=== PATIENT | female | born 1975 | race African-American/Black ===

== ENCOUNTER 2018-04-20 19:06 | Emergency (ER) | payer BC ==
[2018-04-20 19:20] VITALS: BP 127/82
--- NOTE | 2018-04-20 19:36 | UC ---
Complaint Female HPI - HPI Summary HPI Summary: 42 y/o female presents to the urgent care requesting STD's screening since her boyfriend is having penile discharge and urinary symptoms and told her he has been exposed to STD's from previous partner. Pt is currently taking Macrobid PO for a UTI Dx 3 days ago. Pt denies Hx of STD's, urinary symptoms, vaginal discharge, fever, SOB, chest pain,abdominal pain, N/V/D. Pt wants to be and is not taking any OCP or protection. LMP:03/24/2018. Pt request a test too. - History Of Current Complaint Chief Complaint: UCSTDScreening Stated Complaint: PERSONAL Time Seen by Provider: 04/20/18 19:18 Hx Obtained From: Patient Hx Last Menstrual Period: 03/24/2018 ?: No Onset/Duration: Other - Pt's partner w/ a penile discharge Pt request STD's screening. Pt w/o any symptoms Severity Initially: Mild Severity Currently: None Pain Intensity: 0 Pain Scale Used: 0-10 Numeric Character: Not Applicable Aggravating Factor(s): Nothing Alleviating Factor(s): Nothing Associated Signs And Symptoms: Positive: Negative. Negative: Fever, Back Pain, Vaginal Discharge, Genital Swelling, Genital Blisters - Risk Factors Ectopic Risk Factor: Negative Ovarian Torsion Risk Factor: Negative - Allergies/Home Medications Allergies/Adverse Reactions: Allergies Allergy/AdvReac Type Severity Reaction Status Date / Time No Known Allergies Allergy Verified 04/20/18 19:12 Home Medications: Home Medications Nitrofurantoin Monohyd/M-Cryst [Macrobid 100 mg Capsule] 100 mg PO BID 04/20/18 [History Confirmed 04/20/18] PMH/Surg Hx/FS Hx/Imm Hx Previously Healthy: Yes - Pt denies PMHX - Surgical History Surgical History: Yes Surgery Procedure, Year, and Place: Breast implants 2006 - Family History Known Family History: Positive: Hypertension - Social History Occupation: Employed Full-time Lives: With Family Alcohol Use: Occasionally Substance Use Type: None Smoking Status (MU): Never Smoked Tobacco Review of Systems Constitutional: Negative Skin: Negative Eyes: Negative ENT: Negative Respiratory: Negative Cardiovascular: Negative Gastrointestinal: Negative Genitourinary: Negative Motor: Negative Neurovascular: Negative Musculoskeletal: Negative Neurological: Negative Psychological: Negative Is Patient Immunocompromised?: No All Other Systems Reviewed And Are Negative: Yes Physical Exam - Summary Physical Exam Summary: Vital signs: reviewed General: well developed, well nourished female sitting in the examining table w /o any acute distress. Head: Normocephalic, no lesions. Eyes: PERRLA, EOM's full, conjunctiva clear, fundi grossly normal. Ears: EAC's clear, TM's normal. Nose: Mucosa normal, no obstruction. Throat: Clear, no exudates, no lesions. Neck: Supple, no masses, no thyromegaly, no bruits. Chest: Lungs clear, no rales, no rhonchi, no wheezes. Heart: RR, no murmurs, no rubs, no gallops. Abdomen: Soft, no tenderness, no masses, BS normal. : Normal, no lesions, no discharge, no hernias noted. 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 External genitalia within normal limits. There is no lesions there is no masses noted. Speculum exam: The vaginal romero are within normal limits w/ white vaginal discharge, no the lesions or rashes. The cervix is closed with no lesions or masses. There is no CMT's, and no adnexal masses. Sample sent to Lab for G/C and Affirm panel trichomonas Rectal: No lesions, no hemorrhoids, Back: Normal curvature, no tenderness. Extremities: FROM, no deformities, no edema, no erythema. Neuro: Physiological, no localizing findings. Skin: Normal, no rashes, no lesions noted. Triage Information Reviewed: Yes Vital Signs: Initial Vital Signs Temp 99.8 F 04/20/18 19:13 Pulse 78 04/20/18 19:13 Resp 18 04/20/18 19:13 BP 127/82 04/20/18 19:13 Pulse Ox 98 04/20/18 19:13 Complaint Female Dx - Course Course Of Treatment: 42 y/o female presents to the urgent care requesting STD's screening since her boyfriend is having penile discharge and urinary symptoms and told her he has been exposed to STD's from previous partner. Pt is currently taking Macrobid PO for a UTI Dx 3 days ago. Pt denies Hx of STD's, urinary symptoms, vaginal discharge, fever, SOB, chest pain,abdominal pain, N/V/ D. Pt wants to be and is not taking any OCP or protection. LMP:2017. Pt request a test too.Hx obtained. PE: WNL. Pelvic exam: WNL. Pelvic samples sent to lab to r/o GC/Chla, trichimonas, BV and mana. Blood work ordered for HIV, syphillis, herpes, hep B and Hep C. test: negative. Pt will be notified of the results. Pt advised to continue taking Macrobid for her UTI. D/C instructions explained. Pt understood and agreed w/ plan of care. - Differential Dx/Diagnosis Differential Diagnosis/HQI/PQRI: Cervicitis, Pelvic Inflammatory Disease, , Renal Colic, Sexually Transmitted Disease, Ureteral Stone, Urinary Tract Infection Provider Diagnoses: 1- STI screening. 2- HIV screening Discharge - Sign-Out/Discharge Documenting (check all that apply): Patient Departure - D/C home All imaging exams completed and their final reports reviewed: No Studies - Discharge Plan Condition: Stable Disposition: HOME Patient Education Materials: Sexually Transmitted Diseases (ED), HIV Transmission (ED) Referrals: Darion Cooley MD [Primary Care Provider] - 2 Days Additional Instructions: 1-continue taking Macrobid PO for your UTI. 2- Specimen were sent to lab, if anything abnormal you will receive a call from us for further treatment. 3- blood work was also sent to lab to r/o other STD's, you will notified of results. - Billing Disposition and Condition Condition: STABLE Disposition: Home
[2018-04-22 14:38] LABS: Herpes Simplex Virus II IgG AB Positive (Negative)
--- NOTE | 2018-04-22 15:44 | UC ---
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 2- Specimen were sent to lab, if anything abnormal you will receive a call from us for further treatment. 3- blood work was also sent to lab to r/o other STD's, you will notified of results. - Billing Disposition and Condition Condition: STABLE Disposition: Home
--- NOTE | 2018-04-24 13:24 | UC ---
- Progress Note Progress Note: 04/24/2018 Pt pelvic sample returned positive for Gonorrhea and negative for Chlamydia and trichomonas. Please call back Pt and inform her of result. Pt needs to returht to the clinic for Treatment for Gonorrhea as well as her partner. Thank you Patricia Thurston PA-C Discharge - Sign-Out/Discharge Documenting (check all that apply): Patient Departure - D/C home All imaging exams completed and their final reports reviewed: No Studies - Discharge Plan Condition: Stable Disposition: HOME Patient Education Materials: Sexually Transmitted Diseases (ED), HIV Transmission (ED) Referrals: Darion Cooley MD [Primary Care Provider] - 2 Days Additional Instructions: 1-continue taking Macrobid PO for your UTI. 2- Specimen were sent to lab, if anything abnormal you will receive a call from us for further treatment. 3- blood work was also sent to lab to r/o other STD's, you will notified of results. - Billing Disposition and Condition Condition: STABLE Disposition: Home
== END 2018-04-20 20:02 | disposition home or self-care (01) ==
LOC: UCEAST 19:06
DX: Z11.3 Encounter for screening for infections with a predominantly sexual mode of transmission (principal); Z11.4 Encounter for screening for human immunodeficiency virus [HIV]
CPT/HCPCS: 36415; 80074; 84702; 86592; 86695; 86696; 86703; 87480; 87491; 87510; 87591; 87661; 99212; G0463

== ENCOUNTER 2018-04-24 18:26 | Emergency (ER) | payer BC ==
[2018-04-24 18:41] VITALS: BP 135/90
[2018-04-24] MEDS ORDERED: cefTRIAXone VIAL(*) 250 MG VIAL IM ONE (18:46)
[2018-04-24] MEDS ORDERED: Azithromycin TAB* 250 MG PO ONE (18:47)
[2018-04-24] MEDS ORDERED: Lidocaine 1%* 5 ML VIAL ONE (18:52)
--- NOTE | 2018-04-24 20:03 | UC ---
Complaint Female HPI - HPI Summary HPI Summary: Patient is a 42-year-old female residing to the for treatment of gonorrhea. She was called this afternoon after a positive gonorrhea test from our lab 3 days ago. She endorses a mild amount of discharge and has never had this before. Endorses intercourse with a partner who had told her he had been with someone who had been infected. She denies any other symptoms on this date. - History Of Current Complaint Chief Complaint: UCGeneralIllness Stated Complaint: FOLLOW UP ON LABWORK Time Seen by Provider: 04/24/18 18:41 Hx Obtained From: Patient Hx Last Menstrual Period: 03/24/18 ?: No Onset/Duration: Sudden Onset Timing: Constant Severity Initially: Mild Severity Currently: Mild Pain Intensity: 0 Pain Scale Used: 0-10 Numeric Associated Signs And Symptoms: Positive: Vaginal Discharge - Risk Factors Ectopic Risk Factor: Negative - Allergies/Home Medications Allergies/Adverse Reactions: Allergies Allergy/AdvReac Type Severity Reaction Status Date / Time No Known Allergies Allergy Verified 04/24/18 18:41 PMH/Surg Hx/FS Hx/Imm Hx Previously Healthy: Yes - Surgical History Surgical History: Yes Surgery Procedure, Year, and Place: Breast implants 2006 - Family History Known Family History: Positive: Hypertension, Other - no rectal bleeding. no tumors - Social History Occupation: Employed Full-time Lives: With Family Alcohol Use: Occasionally Substance Use Type: None Smoking Status (MU): Never Smoked Tobacco Review of Systems Constitutional: Negative ENT: Negative Cardiovascular: Negative Gastrointestinal: Negative Genitourinary: Vaginal/Penile Discharge Motor: Negative Neurological: Negative Is Patient Immunocompromised?: No All Other Systems Reviewed And Are Negative: Yes Physical Exam Triage Information Reviewed: Yes Appearance: Well-Appearing, Well-Nourished Vital Signs: Initial Vital Signs Temp 99.6 F 04/24/18 18:37 Pulse 72 04/24/18 18:37 Resp 16 04/24/18 18:37 BP 135/90 04/24/18 18:37 Pulse Ox 99 04/24/18 18:37 Vital Signs Reviewed: Yes Eye Exam: Normal Eyes: Positive: Conjunctiva Clear Neck exam: Normal Neck: Positive: Supple, No Lymphadenopathy Respiratory Exam: Normal Respiratory: Positive: Chest non-tender Cardiovascular Exam: Normal Cardiovascular: Positive: RRR Musculoskeletal Exam: Normal Musculoskeletal: Positive: Strength Intact Psychological: Positive: Normal Response To Family Skin Exam: Normal Complaint Female Dx - Course Course Of Treatment: Patient is given 250 IM ceftriaxone and 1000 azithromycin for coverage of gonorrhea. - Differential Dx/Diagnosis Differential Diagnosis/HQI/PQRI: Pelvic Inflammatory Disease Provider Diagnoses: Gonorrhea Discharge - Sign-Out/Discharge Documenting (check all that apply): Patient Departure All imaging exams completed and their final reports reviewed: No Studies - Discharge Plan Condition: Stable Disposition: HOME Patient Education Materials: Gonorrhea (ED) Referrals: Darion Cooley MD [Primary Care Provider] - Additional Instructions: Refrain from sexual activity x 5 days Have partners treated and they wait 5 days as well - Billing Disposition and Condition Condition: STABLE Disposition: Home
== END 2018-04-24 19:00 | disposition home or self-care (01) ==
LOC: UCEAST 18:26
DX: A54.9 Gonococcal infection, unspecified (principal)
CPT/HCPCS: 96372; 99211; A9270-GY; G0463; J0696

== ENCOUNTER 2022-07-29 10:19 | Observation (INO) ==
[2022-07-29 11:01] LABS: ABS Eosinophils 0.4 10^3/ul (0-0.6); ABS Lymphocytes 1.7 10^3/ul (1.0-4.8); ABS Monocytes 0.5 10^3/ul (0-0.8); ABS Neutrophils 1.7 10^3/ul (1.5-7.7); Eosinophil % 8.5 %; Hematocrit 31 % (35-47); Hemoglobin 9.7 g/dL (12.0-16.0); Lymphocyte % 40.3 %; Mean Corpuscular HGB Conc 32 g/dL (31-36); Mean Corpuscular Hemoglobin 26 pg (27-31); Mean Corpuscular Volume 81 fL (80-97); Mean Platelet Volume 8.8 fL (7.4-10.4); Nucleated Red Blood Cells % 0.1; Platelet Count 273 10^3/uL (150-450); Red Blood Count 3.79 10^6 /uL (3.70-4.87); Red Cell Distribution Width 18 % (10-15); White Blood Count 4.3 10^3/uL (3.5-10.8)
[2022-07-29] MEDS ORDERED: Naloxone 0.4 mg VIAL 0.4 mg/ml 1 ml VIAL IV PUSH PRN (11:15)
[2022-07-29 11:35] LABS: Anion Gap 8 mmol/L (2-11); Blood Urea Nitrogen 11 mg/dL (6-24); CO2 Carbon Dioxide 25 mmol/L (22-32); Calcium 8.8 mg/dL (8.6-10.3); Chloride 105 mmol/L (101-111); Glucose 87 mg/dL (70-100); Sodium 138 mmol/L (135-145)
[2022-07-29 11:43] LABS: Activated Partial Thrombo Time 27.7 seconds (26.0-38.0); INR 0.98 (0.89-1.11)
[2022-07-29 11:44] LABS: HCG Pregnancy < 0.60 mIU/mL
[2022-07-29] MEDS ORDERED: oxyCODONE SR 10 mg TAB ONE (12:32)
[2022-07-29] MEDS ORDERED: Ondansetron 4 mg VIAL 2 MG/ML 2 ml VIAL ONE (12:33)
[2022-07-29] MEDS ORDERED: Scopolamine 1 mg/72hr PATCH ONE (12:33)
[2022-07-29] MEDS ORDERED: Clindamycin 900 MG/50 **NS BAG 900 MG/50 ML BAG IV ONE (13:00)
[2022-07-29] MEDS ORDERED: Lidocaine 1% VIAL 10 MG/ML VIAL 30 ML ONE (13:02)
[2022-07-29] MEDS ORDERED: Heparin 2 UNITS/ML IVPREMIX 3,000 UNIT/1,500 ML BAG IV ONE (13:02)
[2022-07-29] MEDS ORDERED: Iohexol 350 (CONTRAST) 100 ML PAK IV ONE ×2 (13:02→13:53)
[2022-07-29] MEDS ORDERED: nitroGLYCERIN DRIP 25,000 MCG/250 ML BTL ONE (13:20)
[2022-07-29] MEDS ORDERED: Lidocaine 1% MPF 5 ML VIAL ONE (13:20)
[2022-07-29] MEDS ORDERED: Midazolam 5 mg/5 ml VIAL 1 mg/ml 5 ml VIAL (5 mg) ONE (13:25)
[2022-07-29] MEDS ORDERED: fentaNYL 100 mcg/2 ml 50 MCG/ML VIAL ONE (13:25)
[2022-07-29] MEDS ORDERED: HYDROmorphone 0.5 MG/0.5 ML SYRINGE ONE (14:31)
[2022-07-29] MEDS ORDERED: Heparin 2 UNITS/ML IVPREMIX 1,000 UNIT/500 ML BAG IV ONE (14:35)
[2022-07-29] MEDS: HYDROmorphone PCA 20 MG/20 ML PCA.SYRING PCA SCH ×2 (15:55→18:51)
[2022-07-29] MEDS: Ondansetron 4 mg VIAL 2 MG/ML 2 ml VIAL IV SCH (19:55)
[2022-07-29] MEDS ORDERED: NS 0.9% 1000 ml BAG 1,000 ML IV SCH (23:59)
[2022-07-30] MEDS: Ondansetron 4 mg VIAL 2 MG/ML 2 ml VIAL IV SCH ×2 (00:39→07:36)
[2022-07-30] MEDS: HYDROmorphone PCA 20 MG/20 ML PCA.SYRING PCA SCH (07:02)
[2022-07-30] MEDS ORDERED: HYDROcodone/ACETAMIN 5/325 mg TAB PO PRN (09:23)
[2022-07-30] MEDS ORDERED: Ketorolac 10 mg TAB (NF) PO SCH ×2 (10:00→12:30)
[2022-07-30 11:56] VITALS: BP 142/77
== END 2022-07-30 14:09 | disposition home or self-care (01) ==
LOC: CHICATH 10:19 → SSU 10:19 → SUATTDRO 17:31
PROVIDERS: ADMIT Internal Medicine; ATTEND Internal Medicine
PROC: ANG.UFE (2022-07-29 12:10)